=== PATIENT | female | born 1995 | race Two or more races ===

== ENCOUNTER 2023-06-29 17:58 | Emergency (ER) | payer MEDICAID, OTHER ==
[~2023-06-29] VITALS: Ht 165.1 cm; Wt 170.0 kg
[2023-06-29 18:14] VITALS: BP 125/58; PULSE 77; RESP 16; O2SAT 95
[2023-06-29] MEDS: HYDROcodone-ACET 5/325MG TAB PO ONE (21:39)
[2023-06-29] MEDS ORDERED: HYDR-4902 PO (21:48)
== END 2023-06-29 22:29 | disposition home or self-care (01) ==
LOC: ER 17:58
DX: S63.501A Unspecified sprain of right wrist, initial encounter (principal); S63.601A Unspecified sprain of right thumb, initial encounter; W19.XXXA Unspecified fall, initial encounter; Y93.89 Activity, other specified; Y92.89 Other specified places as the place of occurrence of the external cause; Y99.8 Other external cause status
CPT/HCPCS: 29125; 73110; 73130